=== PATIENT | female | born 1940 | race Asian ===

== ENCOUNTER 2023-03-25 06:00 | Observation (INO) | payer MEDICARE ==
[2023-03-23 12:30] LABS: INR 0.96 (0.85-1.15); PROTHROMBIN TIME 11.2 SEC (9.6-11.6)
[2023-03-23 12:31] LABS: PARTIAL THROMBOPLASTIN TIME 30.9 SEC (26.3-35.5)
[2023-03-23 12:54] VITALS: BP 160/83; PULSE 72; RESP 18
[~2023-03-25] VITALS: Ht 152.4 cm; Wt 51.3 kg
[2023-03-25] VITALS (32 sets, daily range): BP systolic 93–153; BP diastolic 45–75; PULSE 60–90; RESP 14–20; O2SAT 98
[~2023-03-25 06:00] MED LIST: AEC81 PO; LEVO100T4 PO
[2023-03-25] MEDS ORDERED: CEFAZOLIN SODIUM 2 GM VIAL ONE (06:22)
[2023-03-25] MEDS ORDERED: LACTATED RINGERS 1000ML 1,000 ML IV ONE (06:22)
[2023-03-25] MEDS ORDERED: TRANEXAMIC ACID 1000MG/10ML ONE (06:32)
[2023-03-25] MEDS ORDERED: NEOSTIGMINE 5MG/5ML SYR IV ONE (07:12)
[2023-03-25] MEDS ORDERED: SUCCINYLCHOLINE 200MG/10ML SYR ONE (07:12)
[2023-03-25] MEDS ORDERED: PROPOFOL 10 MG/ML 20ML VIAL IV ONE (07:12)
[2023-03-25] MEDS ORDERED: DEXAMETHASONE SOD PHOSPHATE 10MG/ML 1ML VIAL ONE (07:12)
[2023-03-25] MEDS ORDERED: GLYCOPYRROLATE 1 MG/5 ML SYRINGE ONE (07:12)
[2023-03-25] MEDS ORDERED: ONDANSETRON 4MG INJ ONE (07:12)
[2023-03-25] MEDS ORDERED: LIDOCAINE PF 100MG/5ML (2%) SYRINGE 5ML ONE (07:12)
[2023-03-25] MEDS ORDERED: MIDAZOLAM HCL 1 MG/ML 2ML VIAL ONE (07:12)
[2023-03-25] MEDS ORDERED: FENTANYL CITRATE PF 50 MCG/1 ML 2ML VIAL ONE (07:13)
[2023-03-25] MEDS ORDERED: ROCURONIUM 10MG/1ML SYR 10 MG/ML ML ONE (07:13)
[2023-03-25] MEDS ORDERED: ONDANSETRON 4MG INJ IVP PRN (07:30)
[2023-03-25] MEDS ORDERED: POTASSIUM CHLORIDE 10% ELIXIR 20 MEQ/15 ML UDCUP PO PRN (07:30)
[2023-03-25] MEDS ORDERED: KCL 20 MEQ ERTAB PO PRN (07:30)
[2023-03-25] MEDS ORDERED: TRAMADOL HCL 50 MG TABLET PO PRN (07:30)
[2023-03-25] MEDS ORDERED: POTASSIUM CHLORIDE 20MEQ/100ML 100 ML IV PRN (07:30)
[2023-03-25] MEDS ORDERED: ACETAMINOPHEN 500 MG TABLET PO PRN (07:30)
[2023-03-25] MEDS ORDERED: EPHEDRINE SULFATE 50 MG/ML AMPULE ONE (07:36)
[2023-03-25] MEDS ORDERED: MEPERIDINE-PF 25 MG/ML SYG ONE ×2 (09:24→10:56)
[2023-03-25] MEDS ORDERED: LIDOCAINE HCL-MPF 2% 10ML AMP IJ ONE (09:26)
[2023-03-25] MEDS: ACETAMINOPHEN 1,000 MG/100 ML VIAL IV SCH ×3 (09:55→21:12)
[2023-03-25] MEDS: IBUPROFEN 800MG + NS 250ML IV SCH ×2 (11:38→15:41)
[2023-03-25] MEDS: 0.9%NACL 1000ML 1,000 ML IV SCH ×2 (15:41→17:18)
[2023-03-25] MEDS: POLYETHYLENE GLYCOL 3350 17 GM POWD.PACK PO SCH (15:41)
[2023-03-25] MEDS: CEFAZOLIN SODIUM 1 GM VIAL IVPB SCH ×2 (15:42→23:06)
[2023-03-25] MEDS ORDERED: FAMOTIDINE 20MG TAB PO SCH (21:00)
[2023-03-26] VITALS: BP 122/63; PULSE 76; RESP 18
[2023-03-26] MEDS: IBUPROFEN 800MG + NS 250ML IV SCH (01:38)
[2023-03-26] MEDS: 0.9%NACL 1000ML 1,000 ML IV SCH (03:30)
[2023-03-26 04:00] VITALS: BP 117/75; PULSE 74; RESP 18
[2023-03-26 04:18] LABS: HEMATOCRIT 34.4 % (36-48); MEAN CORPUSCULAR HEMOGLOBIN 30.7 pg (27.0-33.0); MEAN CORPUSCULAR VOLUME 96.1 fL (79-99); RED BLOOD CELL COUNT(AUTO) 3.58 MIL/uL (4.00-5.50); RED CELL DISTRIBUTION WIDTH 13.1 % (11.0-15.5); WHITE BLOOD COUNT (AUTO) 9.1 K/uL (4.8-10.8)
[2023-03-26 04:27] LABS: POTASSIUM 4.8 mmol/L (3.5-5.1)
[2023-03-26] MEDS ORDERED: LEVOTHYROXINE 100 MCG TABLET PO SCH (06:30)
[2023-03-26] MEDS: ASPIRIN 81 MG EC TAB PO SCH ×2 (07:52→07:54)
[2023-03-26] MEDS: POLYETHYLENE GLYCOL 3350 17 GM POWD.PACK PO SCH ×2 (07:53→14:17)
[2023-03-26 07:54] VITALS: BP 122/63; PULSE 78; RESP 18
[2023-03-26] MEDS: HYDROCODONE/ACETAMINOPHEN 5/325 MG TAB PO PRN ×2 (09:14→14:13)
[2023-03-26] MEDS ORDERED: MORPHINE 2 MG SYG ONE (09:23)
[2023-03-26] MEDS ORDERED: MORPHINE 2 MG SYG IVP PRN (09:30)
[2023-03-26 10:05] VITALS: O2SAT 99
[2023-03-26 11:12] VITALS: BP 101/47; PULSE 65; RESP 18
[2023-03-28] MEDS ORDERED: BISACODYL 10 MG SUPP.RECT RC PRN (07:30)
== END 2023-03-26 16:15 ==
LOC: DAH 06:00 → DAHIP 06:01 → DAH 06:01 → 4CH 14:15
PROVIDERS: ADMIT Orthopaedic Surgery; ATTEND Orthopaedic Surgery
DX: M17.11 Unilateral primary osteoarthritis, right knee (principal); Z20.822 Contact with and (suspected) exposure to COVID-19; M21.161 Varus deformity, not elsewhere classified, right knee; Z79.899 Other long term (current) drug therapy
CPT/HCPCS: 85610; 85730; 87426; 36415 ×2; 93005; 87641; 64447; 96376; 96365; 96366 ×2; 96375; 96368; 97039 ×4; 27447; 73562; 97161; 80048; 85027; 97116; 97530 ×2; A6260; G0378 ×29; C1713; C1776 ×4; A4663; J7030; J7120; J3010; J0690 ×3; J3490 ×4; J0330; J1100; J2710; J2001; J2250; J2704; J2405; J2175 ×2; J1741 ×3; A6223; G0168; A4649; A6212; A4930; A5120; A4215; A4223; A4222; A4221; J2270